=== PATIENT | female | born 1985 | race Caucasian/White ===

== ENCOUNTER 2024-02-21 19:00 | Emergency (ER) | payer OTHER, SELFPAY ==
[2024-02-21 19:04] VITALS: BP 155/84
[2024-02-21 19:24] LABS: % Basophils 0.2 % (0-2); % Immature Granulocytes 0.5 % (0-0.5); % Lymphocytes 3.6 % (20.5-51.1); % Monocytes 2.9 % (1.7-9.3); % Neutrophils 92.8 % (42.2-75.2); Absolute Immature Granulocytes 0.1 10^3/uL (0-0.05); Absolute Lymphocytes 0.7 10^3/uL (1.2-3.4); Absolute Monocytes 0.5 10^3/uL (0.1-0.6); Absolute Neutrophils 17.2 10^3/uL (1.4-6.5); Hemoglobin 12.2 g/dL (12.0-16.0); Mean Corpuscular Hgb 27.7 pg (27.0-31.0); Mean Corpuscular Volume 84.1 fL (81.0-99.0); Mean Platelet Volume 9.7 fL (7.4-10.4); Nucleated Red Blood Cells % 0 %; Platelet Count 286 10^3/uL (130-400); Red Cell Dist. Width 13.6 % (11.5-14.5); White Blood Cell Count 18.6 10^3/uL (4.8-10.8)
[2024-02-21 19:37] LABS: Erythrocyte Sed Rate 11 mm/hour (0-20)
[2024-02-21 19:38] LABS: HCG, Serum Qualitative Screen Negative
[2024-02-21 19:40] LABS: ALT (SGPT) 22 U/L (0-35); AST (SGOT) 26 U/L (14-36); Albumin 4.4 g/dl (3.5-5.0); Alkaline Phosphatase 82 U/L (38-126); Blood Urea Nitrogen 8 mg/dl (7-17); Calcium 9.4 mg/dl (8.4-10.2); Carbon Dioxide 25 mmol/L (22-30); Chloride 103 mmol/L (98-107); Glucose 137 mg/dl (70-99); Potassium 4.2 mmol/L (3.5-5.1); Sodium 138 mmol/L (135-145); Total Bilirubin 0.7 mg/dl (0.2-1.3); Total Protein 7.3 g/dl (6.3-8.2); Uric Acid 5.6 mg/dl (2.5-6.2); eGFR > 60.00
[2024-02-21] MEDS: TYLENOL 1000 MG PO (20:32)
--- NOTE | 2024-02-21 20:37 | ED.GENMED ---
History of Present Illness
General
Chief Complaint: Abdominal Symptoms
Time Seen by Provider: 02/21/24 20:16
Travel History
Have you had any contact with someone who has COVID-19?: No
Do you have any symptoms of coronavirus? Fever > 100 degrees, chills, cough, shortness of breath, sore throat, loss of taste or smell, muscle aches, or headache?: No
History of Present Illness
History of Present Illness:
38-year-old female presents to the emergency department for evaluation of nausea and vomiting. She states that she developed redness and discomfort to the right elbow shortly after the onset of vomiting and is now began to feel feverish. Denies
any generalized abdominal pain but does report intractable nausea and vomiting. Had a similar bout of right upper extremity cellulitis several years ago and was admitted for IV antibiotics. Denies chest pain or dyspnea
Past History
Past History
ED Past Medical History: Asthma, Cancer (Breast), HTN, Hypothyroidism, Psychiatric (Anxiety, Depression, ADD, ) and Other (Back pain, Vertigo, Anemia)
ED Past Surgical History: , Gynecological (bilateral mastectomy, Tubal) and Tonsilectomy
Patient has exhibited threatening behavior?: No
Social History
Tobacco: Non-smoker
Alcohol: Occasional
Personal: Single
Living: with family
Review of Systems
Review of Systems
Allergies reviewed?: Yes
All Other Systems: ROS reviewed and negative except as documented in HPI and ROS
Phy Exam
Physical Exam
Physical Exam:
GEN: Well appearing, NAD, WDWN
Eyes: PERRLA, EOMs intact, no scleral icterus
HENT: NCAT, oral mucosa moist
Lungs: CTAB, no wheezes, rales, rhonchi, normal chest wall excursion
Cardiac: Tachycardic, regular
Abdomen: S, NT, ND, NABS, no masses or hepatosplenomegaly
Neuro: AO x 3
MSK: No gross deformity or ecchymosis. No edema. No digital clubbing
Skin: 5 x 3 cm mildly indurated patch of erythema to the right lateral elbow, no elbow joint effusion or olecranon bursitis, no pain with passive stretch of the right wrist
Psych: Calm, cooperative, proper hygiene
Course
Orders/Labs/Results
Orders:
Orders
02/21/24 19:08
Test Result ONCE
02/21/24 19:12
C-Reactive Protein Urgent
Complete Blood Count/With Diff Urgent
Comprehensive Metabolic Panel Urgent
Erythrocyte Sed Rate Urgent
HCG, Serum Qualitative Screen Urgent
Uric Acid Urgent
02/21/24 20:20
0.9% Sodium Chloride 1000 ml [Nss] 1,000 ml IV BOLUS
Acetaminophen [Tylenol] 1,000 mg PO NOW STA
Ondansetron Injectable [Zofran] 4 mg IV NOW STA
02/21/24 20:27
Clindamycin 600 mg/50 ml [Cleocin] 600 mg in 50 ml IV NOW
02/21/24 20:39
Lactic Acid Q4H
Comment: CANCEL 2nd LACTIC ACID IF 1st LACTIC ACID IS LESS THAN 2
Urinalysis Reflex To Culture Urgent
Date Specimen was Collected: 02/21/24
Time Specimen was Collected: 20:24
Urine Microscopic Reflex Cult Urgent
Blood Culture Q30M
LAURA Source: Blood/Venous
Specimen Description:
Urine Culture Urgent
LAURA Source: U
Specimen Description:
Date Specimen was Collected: 02/21/24
Time Specimen was Collected: 20:24
02/21/24 20:44
Blood Culture Q30M
LAURA Source: Blood/Venous
Specimen Description:
02/21/24 22:17
Clindamycin HCl [Cleocin] 450 mg PO NOW STA
Ketorolac [Toradol] 15 mg IV NOW STA
Abnormal Lab Results
02/21/24 02/21/24
19:12 20:39
WBC 18.6 H 10^3/uL
(4.8-10.8)
Abs Immat Gran (auto) 0.1 H 10^3/uL
(0-0.05)
Absolute Neuts (auto) 17.2 H 10^3/uL
(1.4-6.5)
Absolute Lymphs (auto) 0.7 L 10^3/uL
(1.2-3.4)
Neutrophils % 92.8 H %
(42.2-75.2)
Lymphocytes % 3.6 L %
(20.5-51.1)
Glucose 137 H mg/dl
(70-99)
C-Reactive Protein 35.30 H mg/L
(0.0-10.00)
Urine Ketones Trace A
(Negative)
Ur Occult Blood Reflex 3+ A
(Negative)
Leukocyte Esterase Rfl Trace A
(Negative)
Urine RBC 3-6 A /HPF
(0-2)
Urine Bacteria (Reflex) Many A
(Negative)
02/21/24 19:12
02/21/24 19:12
Vital Signs
Initial and Last Documented VS:
Initial Vital Signs
Temp Pulse Resp BP Pulse Ox
98.6 F 91 18 155/84 97
02/21/24 19:04 02/21/24 19:04 02/21/24 19:04 02/21/24 19:04 02/21/24 19:04
Last Documented Vital Signs
Temp Pulse Resp BP Pulse Ox
100.2 F 82 16 139/80 98
02/21/24 20:23 02/21/24 22:54 02/21/24 22:54 02/21/24 22:54 02/21/24 22:54
MDM/Problems Addressed
MDM/Problems Addressed:
38-year-old female presents with cellulitis to the right upper extremity with systemic symptoms. She is a history of cellulitis which is likely compounded by her lymphedema in the setting of a right-sided mastectomy. She is febrile, treated with
antipyretics and analgesics as well as IV fluids and IV antibiotics. Patient was given the option for admission versus discharge to home, her last hospital stay for this issue was quite short and she is comfortable with discharge home at this time
which I feel is reasonable. Was given a dose of oral clindamycin for use first thing in the morning and a prescription was sent for further therapy. Strict ED return parameters discussed
*Critical Care Note
Total Time (30-74mins, 75-104mins- exclusive of procedures): Not Applicable
ED Attending Note
-
Portions of this chart may have been created with voice recognition software.� Occasional wrong word or��sound alike� substitutions may have occurred due to the inherent limitations of voice recognition software.
Discharge Plan
Departure
Patient Disposition: Home (Routine Discharge)
Date of Disposition: 02/21/24
Time of Disposition: 22:18
Patient with high blood pressure during this ER visit?: No
Discharge Problem:
Cellulitis of right arm
Instructions: Cellulitis (Skin Infection), Adult ED
Prescriptions:
New
clindamycin HCl 150 mg capsule
450 mg PO QID 7 Days Qty: 84 0RF
No Action
multivitamin [Rur-Ewyizl-Eaygw] 1 EACH tablet
1 ea PO DAILY
ascorbic acid (vitamin C) [Vitamin C With Jana Hips] 500 MG tablet
500 mg PO DAILY
omeprazole 40 MG capsule,delayed release(DR/EC)
40 mg PO DAILY
venlafaxine 37.5 MG tablet
37.5 mg PO DAILY
tamoxifen 20 MG tablet
20 mg PO DAILY
bupropion HCl 300 MG tablet extended release 24 hr
300 mg PO DAILY
levothyroxine 137 MCG capsule
137 mcg PO DAILY
sulfamethoxazole-trimethoprim 1 TABLET tablet
1 tab PO BID Qty: 10 0RF
prednisone 20 mg tablet
40 mg PO DAILY Qty: 8 0RF
Referrals:
Kory Salazar MD [Family Provider] -
Activity Restrictions/Additional Instructions:
If your symptoms are worsening after more than 48 hours of antibiotics or if you cannot tolerate the oral antibiotics do not hesitate to return to the emergency department
Interventions
Interventions:
*Risk Screen - Suicide Last Done: 02/21/24 19:04
*General Assessment Last Done: 02/21/24 19:04
*Neglect/Abuse Screening Last Done: 02/21/24 19:04
*ED COVID-19 Vaccine History Last Done: 02/21/24 20:10
*Nursing Disposition Last Done: 02/21/24 22:54
OC-Lkbewf-Hkfwwjlodo Assessment Last Done: 02/21/24 20:10
Discharge Date and Time
Discharge Date/Time: 02/21/24 22:55
Print Language: ETHIOPIAN
[2024-02-21] MEDS: ZOFRAN 4 MG IV (20:38)
[2024-02-21] MEDS: NSS 1000 IV (20:38)
[2024-02-21 20:51] LABS: Urine Albumin Negative (Neg - Trace); Urine Bilirubin Negative (Negative); Urine Character Clear (Clear); Urine Color Yellow; Urine Glucose Negative (Negative); Urine Ketone Trace (Negative); Urine Leukocyte Trace (Negative); Urine Nitrite Negative (Negative); Urine Occult Blood 3+ (Negative); Urine Urobilinogen Negative (Neg - 1+)
[2024-02-21 20:58] LABS: Urine Hyaline Cast 0-2 /LPF (0-2); Urine Mucus Few; Urine Squamous Cell >30 /LPF (Few)
[2024-02-21 20:59] LABS: Urine Bacteria Many (Negative); Urine White Cell 0-2 /HPF (0-5)
[2024-02-21 21:01] LABS: Lactic Acid 1.6 mmol/L (0.7-2.0)
[2024-02-21] MEDS: CLEOCIN 50 IV (21:02)
[2024-02-21] MEDS: TORADOL 15 MG IV (22:43)
[2024-02-21] MEDS: CLEOCIN 450 MG PO (22:43)
[2024-02-21 22:54] VITALS: BP 139/80
== END 2024-02-21 22:55 | disposition home or self-care (01) ==
LOC: EMR 19:00
PROVIDERS: Physician Assistant; EMERGENCY PHYSICIAN Emergency Medicine; FAMILY PHYSICIAN Family Medicine
DX: L03.113 Cellulitis of right upper limb (principal); R11.2 Nausea with vomiting, unspecified; I10 Essential (primary) hypertension; E03.9 Hypothyroidism, unspecified; F32.A Depression, unspecified; F41.9 Anxiety disorder, unspecified; J45.909 Unspecified asthma, uncomplicated; D64.9 Anemia, unspecified; F90.9 Attention-deficit hyperactivity disorder, unspecified type; Z85.3 Personal history of malignant neoplasm of breast; Z90.13 Acquired absence of bilateral breasts and nipples; Z88.3 Allergy status to other anti-infective agents; Z88.0 Allergy status to penicillin; Z91.048 Other nonmedicinal substance allergy status
CPT/HCPCS: 99284; 96365; 96375 ×2; 80053; 81003; 81015; 83605; 84550; 84703; 85025; 85652; 86140; 87040; 87086

== ENCOUNTER 2025-03-23 16:21 | Emergency (ER) | payer OTHER, SELFPAY ==
[2025-03-23 16:30] VITALS: BP 147/115
--- NOTE | 2025-03-23 19:49 | ED.GENMED ---
History of Present Illness
General
Chief Complaint: Back Pain
Time Seen by Provider: 03/23/25 19:29
History of Present Illness
History of Present Illness:
39-year-old female with past medical history of breast cancer, hypothyroidism, hypertension presenting to the emergency department for evaluation of back pain that started about a week and a half ago, initially across the entire lower part of her
back, since Monday pain has been more so in the left lower lumbar region, now radiating down her left leg. Patient saw her primary care with a virtual visit on , prescribed 600 mg of ibuprofen every 8 hours and Flexeril which she has
been taking with no relief. Reports that her primary care told her if she did not have improving symptoms she should come to the emergency department. Patient denies any fevers, chills, rigors, bowel or urinary incontinence, saddle anesthesias,
abnormal weight loss, traumatic injuries or anything that may have precipitated the event. She does have a history of back pain but states this seems to be a little bit worse. She does note that she had imaging of her left hip about 3 years ago
which showed a bone spur.
Past History
Past History
ED Past Medical History: Asthma, Cancer (Breast), HTN, Hypothyroidism, Psychiatric (Anxiety, Depression, ADD, ) and Other (Back pain, Vertigo, Anemia)
ED Past Surgical History: , Gynecological (bilateral mastectomy, Tubal) and Tonsilectomy
Patient has exhibited threatening behavior?: No
Social History
Tobacco: Non-smoker
Alcohol: Occasional
Drug: None
Personal: Single
Living: with family
Review of Systems
Review of Systems
All Other Systems: ROS reviewed and negative except as documented in HPI and ROS
Phy Exam
Physical Exam
Physical Exam:
GENERAL: Alert , in no apparent distress at rest but appears uncomfortable with movements, overweight
EYE: clear conjunctiva b/l
NECK: Supple
ENT: mmm.
CARDIAC: Regular rate and rhythm .
LUNGS: Clear breath sounds bilaterally, no acute respiratory distress, no wheezes/rales/rhonchi
ABDOMEN: Soft, without focal tenderness, no r/g, no cvat
BACK: Limited range of motion secondary to pain. There is reproducible tenderness within the left paralumbar and sacroiliac region
NEUROLOGICAL: Alert and oriented, no focal neuro deficits. Patellar deep tendon reflexes intact and equal bilaterally, sensation grossly intact and equal to light touch bilateral lower extremities
SKIN: Warm and dry, skin intact.
MUSCULOSKELETAL: No edema, well perfused. EHL intact bilaterally
PSYCH: Normal and appropriate interaction.
Scores
Heart Failure Risk
Heart Failure Risk Score: Not Applicable
Heart Score for Chest Pain Patients
STEMI patient?: Not applicable
Withdrawal Assessment of Alcohol
Withdrawal Assessment Completed?: Not applicable
Course
Orders/Labs/Results
Orders:
Orders
03/23/25 19:42
Diazepam [Valium] 5 mg PO NOW STA
Ibuprofen [Motrin] 800 mg PO NOW STA
Lidocaine [Lidocaine 4% Patch] 1 patch TOPICAL NOW STA
Apply Lidocaine patch(s) to:: left lumbar
CR Lumbar Spine Comp Min 4 Vw* Urgent
Comment:
Reason For Exam: pain, worse left sided
Vital Signs
Initial and Last Documented VS:
Initial Vital Signs
Temp Pulse Resp BP Pulse Ox
97.9 F 71 18 147/115 99
03/23/25 16:30 03/23/25 16:30 03/23/25 16:30 03/23/25 16:30 03/23/25 16:30
Last Documented Vital Signs
Temp Pulse Resp BP Pulse Ox
97.9 F 71 18 147/115 99
03/23/25 16:30 03/23/25 16:30 03/23/25 16:30 03/23/25 16:30 03/23/25 19:54
MDM/Problems Addressed
Differential Diagnosis Includes:
Lumbar strain
Spinal stenosis
Disc herniation
Nerve impingement
No symptoms to suggest neurogenic claudication
No symptoms to suggest infectious etiology
No suspicion for urinary cause
MDM/Problems Addressed:
39-year-old female presenting to the ER for evaluation of left lumbar back pain, symptoms for a week and a half, progressive despite continued anti-inflammatories and Flexeril. Based off exam I am most suspicious for a muscular etiology however did
discuss possibility of disc herniation/nerve impingement. No symptoms to suggest need for emergent MRI but will obtain x-ray. Discussed with patient that she may need to follow-up and obtain an outpatient MRI if symptoms persist. Will provide
with information for pain management and orthopedics.
*Radiology
Radiology exam reviewed: preliminary read by ED provider (Mild degenerative changes but no acute fracture or malalignment)
*Pulse Oximetry
SaO2: 99
Oxygen Mode of Delivery: Room air
Patient hypoxic: no
*Critical Care Note
Total Time (30-74mins, 75-104mins- exclusive of procedures): Not Applicable
Patient Management
Escalation/DeEscalation of care consider admission/obs:
Patient with mild improvement with medications here. X-ray with mild degenerative changes. Information for outpatient follow-up was provided. Patient aware of return cautions. Stable for discharge home
ED Attending Note
-
Portions of this chart may have been created with voice recognition software.� Occasional wrong word or��sound alike� substitutions may have occurred due to the inherent limitations of voice recognition software.
Discharge Plan
Departure
Patient Disposition: Home (Routine Discharge)
Date of Disposition: 03/23/25
Time of Disposition: 20:52
Patient with high blood pressure during this ER visit?: Yes
Discharge Problem:
Dorsalgia of lumbosacral region
Instructions: Low Back Pain (DC)
Prescriptions:
New
methylprednisolone [Medrol (Errol)] 4 mg tablets,dose pack
4 mg PO DIRECTED Qty: 21 0RF
diazepam [Valium] 5 mg tablet
5 mg PO BID PRN (Reason: muscle spasm) Qty: 10 0RF
No Action
multivitamin [Osz-Imcfso-Uqrge] 1 EACH tablet
1 ea PO DAILY
ascorbic acid (vitamin C) [Vitamin C With Jana Hips] 500 MG tablet
500 mg PO DAILY
omeprazole 40 MG capsule,delayed release(DR/EC)
40 mg PO DAILY
venlafaxine 37.5 MG tablet
37.5 mg PO DAILY
tamoxifen 20 MG tablet
20 mg PO DAILY
bupropion HCl 300 MG tablet extended release 24 hr
300 mg PO DAILY
levothyroxine 137 MCG capsule
137 mcg PO DAILY
sulfamethoxazole-trimethoprim 1 TABLET tablet
1 tab PO BID Qty: 10 0RF
prednisone 20 mg tablet
40 mg PO DAILY Qty: 8 0RF
clindamycin HCl 150 mg capsule
450 mg PO QID 7 Days Qty: 84 0RF
Referrals:
Placido Reyes MD [Active, Anesthesiology]
Juan Wood MD [Active, Orthopedics]
Kory Salazar MD [Family Provider, Family Practice]
Interventions
Interventions:
*Risk Screen - Suicide Last Done: 03/23/25 16:30
*General Assessment Last Done: 03/23/25 16:30
*Neglect/Abuse Screening Last Done: 03/23/25 20:06
*ED- Fall Risk Assessment Last Done: 03/23/25 20:06
*ED COVID-19 Vaccine History Last Done: 03/23/25 16:30
*Nursing Disposition Last Done: 03/23/25 21:42
ED-Musculoskeletal Assessment Last Done: 03/23/25 21:41
Discharge Date and Time
Discharge Date/Time: 03/23/25 21:42
Print Language: BULGARIAN
[2025-03-23] MEDS: MOTRIN 800 MG PO (20:03)
[2025-03-23] MEDS: VALIUM 5 MG PO (20:04)
[2025-03-23] MEDS: LIDOCAINE 4% PATCH 1 PATCH TOPICAL (20:04)
== END 2025-03-23 21:42 | disposition home or self-care (01) ==
LOC: EMR 16:21
PROVIDERS: EMERGENCY PHYSICIAN Emergency Medicine; FAMILY PHYSICIAN Family Medicine
DX: M54.50 Low back pain, unspecified (principal); M79.605 Pain in left leg; E03.9 Hypothyroidism, unspecified; I10 Essential (primary) hypertension; F41.9 Anxiety disorder, unspecified; F32.A Depression, unspecified; J45.909 Unspecified asthma, uncomplicated; F90.9 Attention-deficit hyperactivity disorder, unspecified type; D64.9 Anemia, unspecified; M77.8 Other enthesopathies, not elsewhere classified; Z85.3 Personal history of malignant neoplasm of breast; Z90.13 Acquired absence of bilateral breasts and nipples; Z88.3 Allergy status to other anti-infective agents; Z88.0 Allergy status to penicillin; Z91.048 Other nonmedicinal substance allergy status
CPT/HCPCS: 99283; 72110